=== PATIENT | female | born 1965 | race Caucasian/White ===

== ENCOUNTER 2019-11-16 09:09 | Day surgery (SDC) | payer MEDICARE ==
[2019-11-16] MEDS ORDERED: Xylocaine 1% Vial 30 ML PF IJ ONE (09:10)
[2019-11-16] MEDS ORDERED: Sensorcaine 0.25% 10 ML IJ ONE (09:10)
[2019-11-16] MEDS ORDERED: DIPRIVAN 200 MG/20 ML IV ONE (10:15)
[2019-11-16] MEDS ORDERED: Ketamine HCl 50 MG/ML ONE (10:15)
--- NOTE | 2019-11-16 11:34 | XRAY ---
Indication: Right stellae ganglion block. Intraoperative fluoroscopy was provided for 9 seconds. 3 digital spot images submitted for interpretation with patient supine demonstrates anterior needle tip projecting just right lateral to the C6-C7 interspace. Small amount of contrast injected for needle tip placement. Correlate with intraoperative findings/report.
--- NOTE | 2019-11-16 11:51 | XRAY ---
9 seconds fluoroscopy time in surgery for right stellae ganglion block.
[2019-11-16] MEDS ORDERED: Lactated Ringers 1,000 ML IV ONE (15:48)
== END 2019-11-16 10:46 | disposition home or self-care (01) ==
LOC: SDC-PAIN 09:09
PROVIDERS: ATTEND Psychiatry & Neurology Pain Medicine
DX: G90.511 Complex regional pain syndrome I of right upper limb (principal); Z79.899 Other long term (current) drug therapy
CPT/HCPCS: 64510; 72040; 77002; J2001; J2704; Q9966

== ENCOUNTER 2022-06-17 13:59 | Emergency (ER) | payer MEDICARE ==
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
[2022-06-17 14:27] VITALS: BP 135/78; PULSE 80; O2SAT 97
== END 2022-06-17 14:55 | disposition home or self-care (01) ==
LOC: ED 13:59
DX: I96 Gangrene, not elsewhere classified (principal); M79.641 Pain in right hand; Z79.891 Long term (current) use of opiate analgesic
CPT/HCPCS: 99281